=== PATIENT | male | born 1965 | race Caucasian/White ===

== ENCOUNTER 2018-08-19 19:24 | Emergency (ER) | payer SELFPAY ==
[~2018-08-19] VITALS: Ht 157.5 cm; Wt 54.4 kg
--- NOTE | 2018-08-19 20:30 | NUR ---
Pt came to emergency room complaining of head pain following a trip and fall. Pt was walking on the side walk and fell and hit her head. Abrasion and hematoma noted on forehead. Pt AXO4. Respirations even and unlabored. Pt put on the monitor and pending eval from ER MD.
[2018-08-19] MEDS ORDERED: HYDROCODONE/APAP 10/325MG 1 EA TABLET ONE (20:40)
[2018-08-19] MEDS ORDERED: HYDROCODONE/APAP 10/325MG 1 EA TABLET PO ONE (21:00)
--- NOTE | 2018-08-19 21:33 | NUR ---
Patient discharged to home in stable condition. Written and verbal after care instructions given. Patient verbalizes understanding of instruction. Pt ambulatory with steady gait.
[2018-08-19 21:34] VITALS: BP 144/97
== END 2018-08-19 21:34 | disposition home or self-care (01) ==
LOC: ER 19:26
DX: S39.012A Strain of muscle, fascia and tendon of lower back, initial encounter (principal); S00.12XA Contusion of left eyelid and periocular area, initial encounter; S00.83XA Contusion of other part of head, initial encounter; S00.81XA Abrasion of other part of head, initial encounter; Z98.890 Other specified postprocedural states; W18.09XA Striking against other object with subsequent fall, initial encounter; Y93.89 Activity, other specified; Y92.89 Other specified places as the place of occurrence of the external cause; Y99.8 Other external cause status
CPT/HCPCS: 70450-TC; 72131-TC